=== PATIENT | male | born 1980 | race Caucasian/White ===

== ENCOUNTER 2016-10-11 06:07 | Day surgery (SDC) | payer OTHER ==
[2016-10-11] MEDS ORDERED: NS 1,000 ML IV ONE (06:13)
[2016-10-11] MEDS ORDERED: fentaNYL 100 MCG/2 ML INJ IVP ONE (06:13)
[2016-10-11] MEDS ORDERED: BENZOCAINE UNIT DOSE SPRAY HURRICAINE MM ONE (06:13)
[2016-10-11] MEDS ORDERED: MIDAZOLAM 2 MG/2 ML VIAL IVP ONE (06:13)
[2016-10-11] MEDS ORDERED: PROPOFOL 200 MG/20 ML VIAL ONE ×3 (08:37→09:10)
[2016-10-11] MEDS ORDERED: MIDAZOLAM 2 MG/2 ML VIAL ONE (08:40)
--- NOTE | 2016-10-11 09:54 | ECHO ---
[id number] + + [address] : : [place] [address] : : [phone] + + Transesophageal Echocardiographic Report + -----+ :Name: TEJAS STARK Joycelyn Date: 10/11/2016 08:48 AM : : Hospital Admission Number: [id number] Location : [facility]: :: 1980 Gender: Male : :Age: 35 yrs Race: WH : :Reason For Study: ASD/PFO : + -----+ MMode/2D Measurements & Calculations LVOT diam: 2.6 cm LVOT area: 5.5 cm2 Normal Measurement Values: + + :LVIDd (3.5-5.7cm) IVSd (0.6-1.1cm) LVPWd (0.6-1.1cm) Aortic Root (2.0-3.7cm)Left Atrium (1.5-4.0cm): :LV Vol(d) (76-115ml) LV Vol(s) (29-48ml) Ejec Fraction (50-65%)PV Kai (0.6- 1.2m/s) TV Kai (0.4-1.0m/s) : :MV E Kai (0.8-1.0m/s)MV A Kai (0.3-1.0m/s)LVOT Kai (0.7-1.2m/s) Asc Ao Kai ( 0.9-1.8m/s) : + + LV The left ventricle is normal in size and function. The left ventricular ejection fraction is normal. RV The right ventricle is grossly normal size. Atria The left atrium is mildly dilated. No thrombus is detected in the left atrial appendage. The right atrium is mildly dilated. The atrial septum is aneurysmal. Injection of contrast documented an interatrial shunt. A patent foramen ovale is present. Mitral Valve The mitral valve is normal in structure and function. There is mild mitral regurgitation. Aortic Valve The aortic valve is normal in structure and function. There is no aortic insufficiency. Pulmonic Valve The pulmonic valve is normal in structure and function. There is no pulmonic valvular regurgitation. Tricuspid Valve The tricuspid valve is normal in structure and function. There is trace to mild tricuspid regurgitation. Vessels The aortic root is normal size. Pericardium There is no pericardial effusion. Conclusion A 2D transesophageal echocardiogram with color flow Doppler was performed. The left ventricle is normal in size and function. The left ventricular ejection fraction is normal. The left atrium is mildly dilated. No thrombus is detected in the left atrial appendage. The right atrium is mildly dilated. The atrial septum is aneurysmal. Injection of contrast documented an interatrial shunt. There is mild mitral regurgitation. The aortic valve is normal in structure and function. There is trace to mild tricuspid regurgitation. A patent foramen ovale is present. Final Reading Physician: qAuilino Narvaez electronically signed on 10/11/2016 09:54 AM Ordering Physician: Aquilino Narvaez Performed By: qAuilino Narvaez
--- NOTE | 2016-10-11 10:21 | GPN ---
[f rep st] PROCEDURE NOTE DATE OF PROCEDURE: 10/11/2016 PROCEDURE PERFORMED: Transesophageal echocardiogram. INDICATION FOR PROCEDURE: Evidence of interatrial shunt on transthoracic study. HARVEY to determine PF O versus atrial septal defect. PROCEDURE: Patient was consented for both anesthesia and transesophageal echocardiogram. All questi ons were answered prior to the start of the procedure. The patient did not receive topical anestheti c spray in the setting of using propofol. After consents were signed, a bite block was placed. The patient was sedated with propofol. Once ap propriate level of sedation was achieved with propofol with anesthesia HARVEY probe was passed without i ncident. HARVEY probe was used to take images of all cardiac structures with focus on interatrial septum. Agitat ed saline contrast study was performed demonstrating interatrial shunt consistent with patent foramen ovale with atrial septal aneurysm. Please see complete echocardiogram for full details. Patient tolerated the procedure well. HARVEY probe was removed without incident and he awoke from propo fol without difficulty. CONCLUSION: Patent foramina ovale with atrial septal aneurysm and positive agitated saline contrast study. The patient will follow up with me in the office. /[id number]/MODL
== END 2016-10-11 10:47 | disposition home or self-care (01) ==
LOC: FCATH 06:07
PROVIDERS: ATTEND Internal Medicine Cardiovascular Disease
PROC: B246ZZ4 Ultrasonography of Right and Left Heart, Transesophageal (ICD-10-PCS; principal; 2016-10-11)
DX: Q21.1 Atrial septal defect (principal); I25.3 Aneurysm of heart
CPT/HCPCS: J2250; J2704

== ENCOUNTER 2017-08-26 12:19 | Emergency (ER) | payer OTHER ==
[2017-08-26] MEDS ORDERED: ONDANSETRON 4 MG/2 ML VIAL IVP ONE (13:23)
[2017-08-26 13:25] LABS: % IMMATURE GRANULYOCYTES 0.4 % (0.0-1.1); ABSOLUTE IMMATURE GRANULOCYTES 0.04 10^3/uL (0.00-0.10); ADD DIFF? NO; ADD MORPH? NO; ADD SCAN? NO; ATYPICAL LYMPHOCYTE FLAG 0 (0-99); FRAGMENT RBC FLAG 10 (0-99); HEMATOCRIT 45.9 % (40.0-51.0); HEMOGLOBIN 16.2 g/dL (13.7-17.5); LEFT SHIFT FLG 0 (0-99); LIPEMIA HEMOLYSIS FLAG 90 (0-99); MEAN CELL HEMOGLOBIN 31.2 pg (27.9-34.1); MEAN CELL HEMOGLOBIN CONCENTR. 35.3 g/dL (32.4-36.7); MEAN CELL VOLUME 88.4 fL (81.5-99.8); MEAN PLATELET VOLUME 9.2 fL (8.7-11.7); PLATELET CLUMPS FLAG 20 (0-99); PLATELET COUNT 263 10^3/uL (150-400); RED BLOOD CELL COUNT 5.19 10^6/uL (4.40-6.38); RED CELL DISTRIBUTION WIDTH 12.5 % (11.5-15.2)
[2017-08-26 13:30] LABS: ANION GAP 16 mEq/L (8-16); CALCIUM 9.3 mg/dL (8.5-10.4); CARBON DIOXIDE 23 mEq/l (22-31); CHLORIDE 105 mEq/L (97-110); GLOMERULAR FILTRATION RATE > 60; GLUCOSE 103 mg/dL (70-100); POTASSIUM 3.7 mEq/L (3.5-5.2); SODIUM 144 mEq/L (134-144)
--- NOTE | 2017-08-26 13:32 | CPEKG ---
Heart Rate: 85 RR Interval: 706 P-R Interval: 176 QRSD Interval: 114 QT Interval: 372 QTC Interval: 443 P [place]: 69 QRS [place]: 15 T Wave [place]: 70 EKG Severity - ABNORMAL ECG - EKG Impression: SINUS RHYTHM EKG Impression: NONSPECIFIC INTRAVENTRICULAR CONDUCTION DELAY Electronically Signed By: Morgan Willingham 26-Aug-2017 19:48:46
--- NOTE | 2017-08-26 13:36 | EDPHY ---
H & P Time Seen by Provider: 08/26/17 12:37 HPI/ROS: CHIEF COMPLAINT: Vomiting, diarrhea, syncopal episode HISTORY OF PRESENT ILLNESS: 36-year-old male presents to the emergency department with multiple episodes of vomiting diarrhea that began yesterday. He had 2 syncopal episodes last evening. He took some Zofran that he had at home for the vomiting and has not vomited since last night. He has no pain in his chest or difficulty breathing. No abdominal pain. No fevers or chills. He presents to the emergency department today at the insistence of his primary care provider because he states his heart rate is still quite elevated and the patient is complaining of a mild headache. Patient think he hit side of his head on the bathtub. He denies neck pain. Denies back pain. Denies chest pain or difficulty breathing. He denies any presyncopal symptoms prior to his fall. No witnessed seizure activity. REVIEW OF SYSTEMS: Constitutional: No fever, no chills. Eyes: No double or blurry vision. ENT: No sore throat. Respiratory: No cough, no shortness of breath. Cardiac: No chest pain. Gastrointestinal: Vomiting, diarrhea as above. No abdominal pain Genitourinary: No dysuria. Musculoskeletal: No neck or back pain. Skin: No rashes. Neurological: No headache. Past Medical/Surgical History: Patent foramina ovale Social History: Smoking Status: Never smoked Physical Exam: General Appearance: Alert, no distress. Temperature 37.8degrees, 91% on room air. No apparent distress. No respiratory distress. Eyes: Pupils equal and round. Extraocular motions are all intact. ENT: Mouth: Mucous membranes moist. Respiratory: No wheezing, rhonchi, or rales, lungs are clear to auscultation. Cardiovascular: Regular rate and rhythm. Gastrointestinal: Abdomen is soft and nontender, no masses, no rebound or guarding, bowel sounds normal. No CVA tenderness bilaterally. Neurological: Alert and oriented x 3, cranial nerves II through XII grossly intact Skin: Warm and dry, no rashes. Musculoskeletal: Nontender to palpate along the cervical, thoracic or lumbar spine. Neck is supple. Extremities: Full range of motion and no peripheral edema. Psychiatric: Patient is oriented X 3, there is no agitation. Constitutional: Initial Vital Signs Temperature (C) 37.8 C 12/19/17 12:22 Heart Rate 108 H 08/26/17 12:22 Respiratory Rate 16 08/26/17 12:22 Blood Pressure 105/71 08/26/17 12:22 O2 Sat (%) 91 L 08/26/17 12:22 O2 Delivery Mode Room Air Allergies/Adverse Reactions: iodine Allergy (Verified 08/26/17 12:25) shellfish derived Allergy (Verified 08/26/17 12:25) Home Medications: Medication Instructions Recorded Atorvastatin Calcium 08/26/17 Medical Decision Making ED Course/Re-evaluation: 36-year-old male presents to the emergency department with multiple episodes of vomiting and diarrhea. His and 3 kids all had similar episodes. The patient had a witnessed syncopal episode x2 at home last evening. The patient' s primary care provider was concerned because he has a history of patent foramen ovale. No intervention. He has been seen by medical lab technician and had an echocardiogram. He is due to have his annual echocardiogram soon. He denies pain in his chest or difficulty breathing. He has no headache. The case was discussed with Dr. Mario Carmona, secondary supervising physician , who did not directly evaluate the patient but agrees with treatment and plan. Dr. Mario Carmona recommended CT imaging without contrast of the brain. I discussed the pros and cons of CT imaging of his brain including radiation exposure the patient agrees with CT scan. Laboratory studies are pending. Laboratory tests are all within normal limits. Troponin was negative. Patient was kept on a cardiac monitored and had no recurring syncopal episodes. He was tolerating p.o. fluids upon discharge. CT imaging of the brain was normal. Patient was comfortable being discharged home. I encouraged close follow-up with primary care provider. He was also instructed to return if he developed any recurring syncopal activity or any other concerns. Differential Diagnosis: Syncope including but not limited to vasovagal syncope, arrhythmia, dehydration , and blood loss. - Data Points Laboratory Results: Laboratory Results 08/26/17 12:36 08/26/17 12:36 Medications Given: Discontinued Medications Ondansetron HCl (Zofran) 4 mg IVP EDNOW ONE Stop: 08/26/17 13:24 Last Admin: 08/26/17 13:27 Dose: 4 mg Departure - Departure Disposition: Home, Routine, Self-Care Clinical Impression: Gastroenteritis, Dehydration Condition: Good Instructions: Dehydration (ED), Gastroenteritis (ED) Additional Instructions: Clear liquids and then slowly advance diet as tolerated. Follow up with your primary care provider. Return to the emergency department if he developed recurring syncopal activity or if you feel worse in any way. Referrals: Lavern Orlando MD [Primary Care Provider] - 1-2 days without fail
[2017-08-26 14:14] VITALS: RESP 18; O2SAT 95
[2017-08-26 15:44] VITALS: BP 110/66; PULSE 89; TEMP 98.6
== END 2017-08-26 15:45 | disposition home or self-care (01) ==
DX: K52.9 Noninfective gastroenteritis and colitis, unspecified (principal); E86.0 Dehydration
CPT/HCPCS: 96374; J2405